=== PATIENT | female | born 1975 | race African-American/Black ===

== ENCOUNTER 2016-11-01 09:56 | Emergency (ER) | payer OTHER ==
[~2016-11-01] VITALS: Ht 167.6 cm; Wt 54.5 kg
[2016-11-01 09:56] VITALS: BP 101/57; PULSE 108; RESP 18; TEMP 99.8; O2SAT 99
[2016-11-01 10:00] VITALS: BP 92/48; PULSE 104; RESP 18; O2SAT 98
[2016-11-01 10:30] VITALS: BP 102/55; PULSE 98; RESP 18; O2SAT 98
[2016-11-01 10:50] LABS: ANION GAP 14 MEQ/L (5-15); BICARBONATE 19.4 MEQ/L (21.0-32.0); BLOOD UREA NITROGEN 17 MG/DL (7-18); CHLORIDE 111 MEQ/L (98-107); GLOMERULAR FILTRATION RATE 43 ML/MIN (>89); POTASSIUM 4.6 MEQ/L (3.5-5.1); SODIUM (NA) 144 MEQ/L (136-145)
[2016-11-01 10:53] LABS: BETA HCG QUANT LESS THAN 1 MIU/ML (0-5)
--- NOTE | 2016-11-01 11:12 | PD ---
HPI Chief Complaint: Syncope/Near-Syncope Time Seen by Provider: 10:08 Travel History International Travel<30 days: No Contact w/Intl Traveler<30days: No Traveled to known affect area: No History of Present Illness HPI Is a 41-year-old woman presents to the emergency department after collapsing while running the marathon. She was at about mile 13 or so. She does not recall the incident. States she's not been feeling well for the past several days. She's had low back cough fever and just not feeling well. Bystanders report that she did not hit her head. She complains of some neck pain, abdominal pain, and feeling thirsty. States she feels dehydrated. Blood pressure on scene was 77 systolic. She states she does run endurance raises often, has not had previous similar problems. History Past Medical History Medical History: Denies Significant Hx Tetanus Vaccination: < 5 Years Influenza Vaccination: No LMP: UNKNOWN : 6 Para: 4 Dilation and Curettage (D&C): Yes Social History Alcohol Use: No Tobacco Use: No Allergies-Medications (Allergen,Severity, Reaction): Coded Allergies: No Known Allergies (Unverified , 11/01/16) Reported Meds & Prescriptions Reported Meds & Active Scripts Active No Active Prescriptions or Reported Medications Review of Systems Except as stated in HPI: all other systems reviewed are Neg Physical Exam Narrative GENERAL: Thin 41-year-old woman, diaphoretic, nontoxic appearing. SKIN: Warm, diaphoretic. HEAD: Atraumatic. Normocephalic. EYES: Pupils equal and round. No scleral icterus. No injection or drainage. ENT: No nasal bleeding or discharge. Mucous membranes pink and moist. NECK: A little bit of midline tenderness in a very top of the cervical spine. She can completely range her neck 45. CARDIOVASCULAR: Regular rate and rhythm. No murmur appreciated. RESPIRATORY: No accessory muscle use. Clear to auscultation. Breath sounds equal bilaterally. GASTROINTESTINAL: Abdomen soft, non-tender, nondistended. Hepatic and splenic margins not palpable. MUSCULOSKELETAL: No obvious deformities. No edema. NEUROLOGICAL: Awake and alert. No obvious cranial nerve deficits. Motor grossly within normal limits. Normal speech. Data Data Last Documented VS Vital Signs Date Time Temp Pulse Resp B/P Pulse Ox O2 Delivery O2 Flow Rate FiO2 11/01/16 10:30 98 18 102/55 98 Room Air 2/5/17 09:56 99.8 Orders Electrocardiogram (11/01/16 ) Beta Hcg (Quant/Titer) (11/01/16 10:08) Basic Metabolic Panel (Bmp) (11/01/16 10:08) Complete Blood Count With Diff (11/01/16 10:59) Diet Regular Basic (11/01/16 Lunch) Labs Laboratory Tests Test 11/01/16 11/01/16 10:15 11:05 Sodium Level 144 MEQ/L Potassium Level 4.6 MEQ/L Chloride Level 111 MEQ/L Carbon Dioxide Level 19.4 MEQ/L Anion Gap 14 MEQ/L Blood Urea Nitrogen 17 MG/DL Creatinine 1.59 MG/DL Estimat Glomerular Filtration 43 ML/MIN Rate Random Glucose 54 MG/DL Calcium Level 8.4 MG/DL Human Chorionic Gonadotropin, LESS THAN 1 Quant MIU/ML White Blood Count 4.8 TH/MM3 Red Blood Count 4.35 MIL/MM3 Hemoglobin 11.7 GM/DL Hematocrit 35.5 % Mean Corpuscular Volume 81.5 FL Mean Corpuscular Hemoglobin 26.9 PG Mean Corpuscular Hemoglobin 33.1 % Concent Red Cell Distribution Width 12.8 % Platelet Count 221 TH/MM3 Mean Platelet Volume 8.6 FL Neutrophils (%) (Auto) 76.9 % Lymphocytes (%) (Auto) 18.0 % Monocytes (%) (Auto) 4.3 % Eosinophils (%) (Auto) 0.3 % Basophils (%) (Auto) 0.5 % Neutrophils # (Auto) 3.7 TH/MM3 Lymphocytes # (Auto) 0.9 TH/MM3 Monocytes # (Auto) 0.2 TH/MM3 Eosinophils # (Auto) 0.0 TH/MM3 Basophils # (Auto) 0.0 TH/MM3 CBC Comment DIFF FINAL Differential Comment MDM Medical Decision Making Medical Screen Exam Complete: Yes Emergency Medical Condition: Yes Interpretation(s) LABS: CBC unremarkable. CMP remarkable for low but a low bicarbonate, creatinine 1.59, HCG negative Differential Diagnosis Hyponatremia, hyperthermia, hypoglycemia, dehydration, arrhythmia, other Narrative Course Medical decision making INITIAL: 41-year-old woman with exercise associated hypotension, syncope, associated with running the marathon. States wasn't feeling well and going into it. We'll check labs, IV fluids, will give her a regular diet. She is a little bit of pain in her neck, low risk mechanism, able to actively range her neck fully. Defer imaging. Diagnosis Primary Impression: Syncope and collapse Additional Instructions: Drink plenty of fluids stay well-hydrated. Up with her primary Dr. garcia filter completely well in 24-48 hours. Return to the emergency department for any chest pain trouble breathing fainting or any other new or worsening symptoms. Med/Other Pt SpecificInfo: No Change to Meds Scripts No Active Prescriptions or Reported Meds Disposition: 01 DISCHARGE HOME Condition: Stable Brett Osei MD Nov 01, 2016 11:12
[2016-11-01 11:33] LABS: AUTOMATED NEUTROPHIL # 3.7 TH/MM3 (1.8-7.7); BASOPHIL % 0.5 % (0.0-2.0); EOSINOPHIL % 0.3 % (0.0-4.0); HEMATOCRIT 35.5 % (35.0-46.0); HEMO FLAGS DIFF FINAL; LYMPHOCYTE # 0.9 TH/MM3 (1.0-4.8); MEAN CELL VOLUME 81.5 FL (80.0-100.0); MEAN CORPUSCULAR HEMOGLOBIN 26.9 PG (27.0-34.0); MEAN CORPUSCULAR HGB CONC 33.1 % (32.0-36.0); MONO % 4.3 % (0.0-8.0); NEUT % 76.9 % (16.0-70.0); PLATELET COUNT 221 TH/MM3 (150-450); RED BLOOD COUNT 4.35 MIL/MM3 (4.00-5.30); RED CELL DISTRIBUTION WIDTH 12.8 % (11.6-17.2); WHITE BLOOD COUNT 4.8 TH/MM3 (4.0-11.0)
[2016-11-01 12:30] VITALS: BP 94/57; PULSE 86; RESP 18; O2SAT 98
--- NOTE | 2016-11-02 11:55 | EKG ---
Date Performed: 11/01/2016 Time Performed: 10:13:01 PTAGE: 41 years EKG: Sinus rhythm NONSPECIFIC T-WAVE ABNORMALITY BORDERLINE ECG NO PREVIOUS TRACING DOCTOR: José Miguel Gomez Interpretating Date/Time 11/02/2016 11:49:06
== END 2016-11-01 13:25 | disposition home or self-care (01) ==
LOC: NEPC 09:56
DX: R55 Syncope and collapse (principal); M54.2 Cervicalgia; I95.89 Other hypotension; R94.31 Abnormal electrocardiogram [ECG] [EKG]; R10.9 Unspecified abdominal pain; R63.1 Polydipsia; R05 Cough; R50.9 Fever, unspecified; Y93.02 Activity, running
CPT/HCPCS: 80048; 84702; 85025; 93005